=== PATIENT | female | born 1955 | race African-American/Black ===

== ENCOUNTER 2017-02-27 09:07 | Emergency (ER) | payer MEDICAID ==
[~2017-02-27] VITALS: Ht 160 cm; Wt 100.7 kg
[2017-02-27 09:51] VITALS: BP 173/84
== END 2017-02-27 10:22 | disposition home or self-care (01) ==
LOC: ER 09:07
DX: F41.9 Anxiety disorder, unspecified (principal); Z76.0 Encounter for issue of repeat prescription; J45.909 Unspecified asthma, uncomplicated; I10 Essential (primary) hypertension; Z88.1 Allergy status to other antibiotic agents; Z88.6 Allergy status to analgesic agent